=== PATIENT | female | born 1975 ===

== ENCOUNTER 2016-11-03 11:15 | Emergency (ER) | payer MEDICAID ==
[2016-11-03 12:08] VITALS: TEMP 98.1
--- NOTE | 2016-11-03 13:06 | C.PDOC ---
History Of Present Illness 41 y/o female presents to ED with c/o smaller than pea-sized tender mass against her left axilla for 1 month. She notes it has not been getting bigger in size. She now also complains of pain to the left breast and left trapezius. Notes she is not taking any pain medication. Denies fever or chills. Patient states she has had no PMD evaluation for these complaints. Reports past hx benign breast biopsy of left breast. Time Seen by Provider: 11/03/16 12:33 Chief Complaint (Nursing): Upper Extremity Problem/Injury History Per: Patient History/Exam Limitations: no limitations Onset/Duration Of Symptoms: Days Current Symptoms Are (Timing): Still Present Recent travel outside of the [place]: No Past Medical History Reviewed: Historical Data, Nursing Documentation, Vital Signs Vital Signs: Last Vital Signs Temp 98.1 F 11/03/16 12:05 Pulse 78 11/03/16 12:05 Resp 20 11/03/16 12:05 BP 142/90 11/03/16 12:05 Pulse Ox 100 11/03/16 13:07 - Medical History PMH: No Chronic Diseases Family History: States: Unknown Family Hx - Social History Hx Alcohol Use: No Hx Substance Use: No Review Of Systems Except As Marked, All Systems Reviewed And Found Negative. Constitutional: Negative for: Fever, Chills Cardiovascular: Negative for: Chest Pain Respiratory: Negative for: Shortness of Breath Gastrointestinal: Negative for: Nausea, Vomiting, Abdominal Pain Genitourinary: Negative for: Dysuria, Frequency Musculoskeletal: Positive for: Back Pain. Negative for: Neck Pain Skin: Positive for: Other (small tender mass to left axillary area). Negative for: Rash Neurological: Negative for: Weakness, Numbness, Dizziness Physical Exam - Physical Exam Appears: Well, Non-toxic, No Acute Distress Skin: Normal Color, Warm, Dry Head: Atraumatic, Normacephalic Lymphatic: No Adenopathy (no palpable cervical/clavicular/axilla adenopathy), Other (+anterior left axillary area, less than pea-sized, firm, tender mass - no redness or swelling) Chest: Symmetrical, Other (no breast swelling, redness, or nipple discharge, bilateral inverted nipples) Cardiovascular: Rhythm Regular, No Murmur Respiratory: Normal Breath Sounds, No Rales, No Rhonchi, No Wheezing Gastrointestinal/Abdominal: Soft, No Tenderness, No Guarding, No Rebound Back: No Vertebral Tenderness, Paraspinal Tenderness (left trapezius, +muscle tightness) Extremity: Normal ROM, Capillary Refill (< 2 sec.) Neurological/Psych: Oriented x3, Normal Speech, Normal Cognition ED Course And Treatment O2 Sat by Pulse Oximetry: 100 (RA) Pulse Ox Interpretation: Normal Disposition Counseled Patient/Family Regarding: Diagnosis, Need For Followup - Disposition Referrals: Dov Green MD [Staff Provider] - Yesy Dave MD [Staff Provider] - Disposition: HOME/ ROUTINE Disposition Time: 13:15 Condition: GOOD Additional Instructions: Follow up with Dr Green and with guide travel; recommend outpatient mammogram and further outpatient evaluation. . Take ibuprofen 600 mg by mouth every 6 hours for pain if needed. warm compresses to left shoulder area/ Return to ER for any worsening symptoms, Prescriptions: Ibuprofen [Motrin] 600 mg PO TID #30 tab Forms: General Discharge Instructions - Clinical Impression Clinical Impression: Lymph nodes enlarged, Trapezius muscle strain - PA / [employer] / Resident Statement MD/DO has reviewed & agrees with the documentation as recorded. - Scribe Statement The provider has reviewed the documentation as recorded by the Melissa Lopez All medical record entries made by the Melissa were at my direction and personally dictated by me. I have reviewed the chart and agree that the record accurately reflects my personal performance of the history, physical exam, medical decision making, and the department course for this patient. I have also personally directed, reviewed, and agree with the discharge instructions and disposition.
[2016-11-03 13:30] VITALS: BP 135/72; PULSE 75; RESP 18
[2016-11-06 10:46] VITALS: O2SAT 100
--- NOTE | 2016-11-08 21:43 | CARD ---
APPROVED REPORT EKG Measurement Heart [id number] <Conclusion> Normal sinus rhythm Normal ECG
== END 2016-11-03 13:40 | disposition home or self-care (01) ==
LOC: C.ER 11:15
DX: R59.9 Enlarged lymph nodes, unspecified (principal); S29.012A Strain of muscle and tendon of back wall of thorax, initial encounter; X58.XXXA Exposure to other specified factors, initial encounter